=== PATIENT | male | born 1955 | race Caucasian/White ===

== ENCOUNTER 2016-09-05 08:07 | Emergency (ER) | payer BC ==
[~2016-09-05] VITALS: Ht 177.8 cm; Wt 79.4 kg
[2016-09-05] MEDS ORDERED: IV NORMAL SALINE 1000ML BAG 1,000 ML IV SCH (08:35)
[2016-09-05] MEDS ORDERED: FENTANYL PF 100 MCG/2 ML VIAL. IV ONE (08:45)
[2016-09-05] MEDS ORDERED: ONDANSETRON PF 4 MG/2 ML VIAL. IV ONE (08:45)
--- NOTE | 2016-09-05 09:52 | PHYS DOC ---
Past Medical History Past Medical History: CAD, GERD, High Cholesterol, [place], Other Additional Past Medical Histor: MITRAL VALVE RUPTURE Past Surgical History: Coronary Bypass Surgery, Other Additional Past Surgical Histo: HEART CATH, MITRAL VALVE REPAIR. Alcohol Use: Occasionally Drug Use: None Adult General Chief Complaint Chief Complaint: ABDOMINAL PAIN HPI HPI 60-year-old male presenting to the emergency department today after having suprapubic abdominal pain. He describes it as a spasm/cramp sensation. It is nonradiating associated with hematuria. He reports passing one clot in his urine. It is moderate and after passing his clots he reports improving symptoms. He denies nausea vomiting fevers chills. Review of systems negative for chest pain shortness of breath nausea or vomiting. All other review of systems is negative unless otherwise noted in history of present illness. Review of Systems Review of Systems SEE ABOVE. Current Medications Current Medications Current Medications Medications (Trade) Dose Ordered Sig/Marcia Start Time Stop Time Status Last Admin Dose Admin Fentanyl Citrate (Fentanyl 2ml Vial) 25 mcg 1X ONCE 09/05/16 08:45 09/05/16 08:45 DC Ondansetron HCl (Zofran) 4 mg 1X ONCE 09/05/16 08:45 09/05/16 08:45 DC Sodium Chloride (Iv Sodium Chloride 0.9% 1000ml Bag) 1,000 ml @ 1,000 mls/hr Q1H 09/05/16 08:35 09/05/16 08:42 DC Allergies Allergies Allergies Coded Allergies Type Severity Reaction Last Updated Verified No Known Drug Allergies 09/05/16 No Physical Exam Physical Exam Constitutional: Well developed, well nourished, no acute distress, non-toxic appearance. [] HENT: Normocephalic, atraumatic, bilateral external ears normal, oropharynx moist, no oral exudates, nose normal. Eyes: PERRLA, EOMI, conjunctiva normal, no discharge. [] Neck: Normal range of motion, no tenderness, supple, no stridor. Cardiovascular:Heart rate regular rhythm, no murmur [] Lungs & Thorax: Bilateral breath sounds clear to auscultation Abdomen: Bowel sounds normal, soft, no tenderness, no masses, no pulsatile masses. Skin: Warm, dry, no erythema, no rash. [] Back: No tenderness, no CVA tenderness. Extremities: No tenderness, no cyanosis, no clubbing, ROM intact, no edema. Neurologic: Alert and oriented X 3, normal motor function, normal sensory function, no focal deficits noted. [] Psychologic: Affect normal, judgement normal, mood normal. Current Patient Data Vital Signs Vital Signs Date Time Temp Pulse Resp B/P Pulse Ox O2 Delivery O2 Flow Rate FiO2 09/05/16 08:10 98.1 58 20 141/79 98 Room Air 98.1 Lab Values Laboratory Tests Test 09/05/16 08:45 Urine Collection Type Unknown Urine Color Red Urine Clarity Turbid Urine pH 5.5 Urine Specific [place] 1.025 Urine Protein >=300mg/dL (NEG-TRACE) Urine Glucose (UA) 100mg/dL (NEG) Urine Ketones (Stick) 15mg/dL (NEG) Urine Blood Large (NEG) Urine Nitrite Positive (NEG) Urine Bilirubin Moderate (NEG) Urine Urobilinogen Dipstick 1.0mg/dL (0.2 mg/dL) Urine Leukocyte Esterase Large (NEG) Urine RBC Tntc/HPF (0-2) Urine WBC 11-20/HPF (0-4) Urine Squamous Epithelial Cells Few/LPF Urine Bacteria Few/HPF (0-FEW) EKG EKG [] Radiology/Procedures Radiology/Procedures [] Course & Med Decision Making Course & Med Decision Making Pertinent Labs and Imaging studies reviewed. (See chart for details) [] 60-year-old gentleman presenting to the emergency department today with suprapubic abdominal pain. Upon arrival to the emergency department he stated his abdominal pain was improving significantly after passing a large blood clot in his urine. Now he just reports spasms. On examination the patient was afebrile with a normal heart rate. Otherwise unremarkable. Physical exam showed a nontender abdomen. Urinalysis was sent which showed evidence of urinary tract infection. Antibiotics prescribed. I sat down as discussed the possibility of Simpson catheter placement with the patient given his hematuria with clots. I recommended the placement of Simpson catheter, he declined. He was concerned about his ability to work and stated he would come back if he was unable to urinate or if his abdominal pain returned. This was placed successfully and the patient was subsequently discharged home to follow up with our urology team for further evaluation workup and care in 4-5. Dragon Disclaimer Dragon Disclaimer This electronic medical record was generated, in whole or in part, using a voice recognition dictation system. Departure Departure Impression: Primary Impression: Hematuria Additional Impression: Bladder spasm Disposition: 01 HOME, SELF-CARE Condition: STABLE Referrals: KIMBERLY HENNESSY (PCP) ALYSIA MARTINES DO Patient Instructions: Hematuria, Adult Additional Instructions: Thank you for allowing us to participate in your care today. Followup with urology in 5-7 days. If you do not have a primary care provider you can ask for a list of our primary care providers. Return to the emergency department you have any new or concerning findings. This should be evaluated by the primary care physician and any necessary consulting services for continued management within a few days after discharge. Return to emergency room if you have any new or concerning symptoms including but not limited to fever, chills, nausea, vomiting, intractable pain, any new rashes, chest pain, shortness of air, uncontrolled bleeding, difficulty breathing, and/or vision loss. You may have been prescribed medication that can change in your level of thinking and ability to operate machinery. These medications include hydrocodone and Ativan. Also, Benadryl has been known to do this as well. Be sure to check with your pharmacist and ask if the medications you've prescribed can affect your level of consciousness. I recommend not operating heavy machinery or driving while on medication such as these. Scripts Sulfamethoxazole/Trimethoprim (Bactrim Ds Tablet)1 Each Tablet1 Tab PO BID #20 TAB Prov:SHAHRIAR TOSCANO MD 09/05/16 Problem Qualifiers SHAHRIAR TOSCANO MD Sep 05, 2016 09:51
[2016-09-05 09:54] LABS: BILIRUBIN,URINE MODERATE (NEG); GLUCOSE,URINE 100 mg/dL (NEG); NITRITE,URINE POSITIVE (NEG); PH,URINE 5.5; PROTEIN,URINE >=300 mg/dL (NEG-TRACE)
[2016-09-05 10:06] LABS: BACTERIA,URINE FEW /HPF (0-FEW); RBC,URINE TNTC /HPF (0-2); SQUAMOUS EPITHELIAL CELL,UR FEW /LPF
[2016-09-05] MEDS ORDERED: SULF1TAB24 PO (10:39)
[2016-09-05 11:30] VITALS: BP 119/66
== END 2016-09-05 11:20 | disposition home or self-care (01) ==
LOC: ER 08:07
DX: R31.9 Hematuria, unspecified (principal); N32.89 Other specified disorders of bladder; I25.10 Atherosclerotic heart disease of native coronary artery without angina pectoris; K21.9 Gastro-esophageal reflux disease without esophagitis; E78.00 Pure hypercholesterolemia, unspecified; I25.2 Old myocardial infarction; I05.9 Rheumatic mitral valve disease, unspecified; Z95.1 Presence of aortocoronary bypass graft
CPT/HCPCS: 81001; 87086; 99284

== ENCOUNTER 2018-09-21 18:17 | Emergency (ER) | payer BC ==
[~2018-09-21] VITALS: Ht 180.3 cm; Wt 86.2 kg
[~2018-09-21 18:17] MED LIST: SULF1TAB24 PO
[2018-09-21] MEDS ORDERED: NITROGLYCERIN SUBLINGUAL 0.4 MG BOTTLE OF 25. SL STA (18:38)
[2018-09-21] MEDS ORDERED: GLUCAGON,HUMAN RECOMBINANT 1 MG/ML VIAL. IV ONE (18:45)
--- NOTE | 2018-09-21 18:54 | PHYS DOC ---
Past Medical History Past Medical History: CAD, GERD, High Cholesterol, Hypertension, [place], Other Additional Past Medical Histor: MITRAL VALVE RUPTURE Past Surgical History: Coronary Bypass Surgery, Other Additional Past Surgical Histo: HEART CATH, MITRAL VALVE REPAIR. Alcohol Use: Occasionally Additional Information: DAILY BEER Drug Use: None Adult General Chief Complaint Chief Complaint: FOREIGN BODY HPI HPI Patient is a 62-year-old male who presents with complaint of food bolus in esophagus. Patient states that he had been eating a piece of steak and when he swallowed it felt like it got stuck and ever since he has not been able to swallow anything. Patient states that he has vomited a couple of times when he is tried to swallow any fluids. He does report pain in his midsternal area that he rates as mild at this time but states that it was quite severe initially. Patient states that he does have a history of reflux disease but denies any history of esophageal foreign body and has not had a scope in the past. Review of Systems Review of Systems Constitutional: Denies fever or chills [] Respiratory: Denies cough or shortness of breath [] Cardiovascular: No additional information not addressed in HPI [] GI: Denies abdominal pain. Reports vomiting. [] Neurologic: Denies headache, focal weakness or sensory changes [] All other systems were reviewed and found to be within normal limits, except as documented in this note. Current Medications Current Medications Current Medications Medications (Trade) Dose Ordered Sig/[facility] Start Time Stop Time Status Last Admin Dose Admin Glucagon (Glucagen) 1 mg 1X ONCE 09/21/18 18:45 09/21/18 18:46 DC 09/21/18 19:10 1 MG Nitroglycerin (Nitrostat) 0.4 mg 1X STAT 09/21/18 18:38 09/21/18 18:41 DC 09/21/18 19:03 0.4 MG Allergies Allergies Allergies Coded Allergies Type Severity Reaction Last Updated Verified No Known Drug Allergies 09/05/16 No Physical Exam Physical Exam Constitutional: Well developed, well nourished, no acute distress, non-toxic appearance. [] HENT: Normocephalic, atraumatic, bilateral external ears normal, oropharynx moist, no oral exudates, nose normal. [] Eyes: PERRLA, EOMI, conjunctiva normal, no discharge. [] Neck: Normal range of motion, no tenderness, supple, no stridor. [] Cardiovascular: Regular rate and rhythm[] Lungs & Thorax: Bilateral breath sounds clear to auscultation [] Abdomen: Bowel sounds normal, soft, no tenderness. [] Skin: Warm, dry, no erythema, no rash. [] Extremities: No tenderness, no cyanosis, no clubbing, ROM intact, no edema. [] Neurologic: Alert and oriented X 3, no focal deficits noted. [] Current Patient Data Vital Signs Vital Signs Date Time Temp Pulse Resp B/P (MAP) Pulse Ox O2 Delivery O2 Flow Rate FiO2 09/21/18 19:03 62 178/81 09/21/18 18:32 96.7 22 99 Room Air 96.7 Lab Values Laboratory Tests Test 09/21/18 18:45 White Blood Count 8.3 x10^3/uL (4.0-11.0) Red Blood Count 4.56 x10^6/uL (4.30-5.70) Hemoglobin 14.6 g/dL (13.0-17.5) Hematocrit 42.2 % (39.0-53.0) Mean Corpuscular Volume 92 fL (79-100) Mean Corpuscular Hemoglobin 32 pg (25-35) Mean Corpuscular Hemoglobin Concent 35 g/dL (31-37) Red Cell Distribution Width 14.1 % (11.5-14.5) Platelet Count 199 x10^3/uL (140-400) Neutrophils (%) (Auto) 56 % (31-73) Lymphocytes (%) (Auto) 31 % (24-48) Monocytes (%) (Auto) 10 % (0-9) H Eosinophils (%) (Auto) 2 % (0-3) Basophils (%) (Auto) 1 % (0-3) Neutrophils # (Auto) 4.6 x10^3uL (1.8-7.7) Lymphocytes # (Auto) 2.5 x10^3/uL (1.0-4.8) Monocytes # (Auto) 0.9 x10^3/uL (0.0-1.1) Eosinophils # (Auto) 0.2 x10^3/uL (0.0-0.7) Basophils # (Auto) 0.1 x10^3/uL (0.0-0.2) Sodium Level 142 mmol/L (136-145) Potassium Level 3.7 mmol/L (3.5-5.1) Chloride Level 104 mmol/L (98-107) Carbon Dioxide Level 24 mmol/L (21-32) Anion Gap 14 (6-14) Blood Urea Nitrogen 20 mg/dL (8-26) Creatinine 1.1 mg/dL (0.7-1.3) Estimated GFR (Cockcroft-Gault) 68.1 BUN/Creatinine Ratio 18 (6-20) Glucose Level 102 mg/dL (70-99) H Calcium Level 9.3 mg/dL (8.5-10.1) Total Bilirubin 2.1 mg/dL (0.2-1.0) H Aspartate Amino Transferase (AST) 21 U/L (15-37) Alanine Aminotransferase (ALT) 39 U/L (16-63) Alkaline Phosphatase 80 U/L (46-116) Total Protein 7.7 g/dL (6.4-8.2) Albumin 4.4 g/dL (3.4-5.0) Albumin/Globulin Ratio 1.3 (1.0-1.7) Laboratory Tests 09/21/18 18:45 Laboratory Tests 09/21/18 18:45 EKG EKG [] Radiology/Procedures Radiology/Procedures [] Course & Med Decision Making Course & Med Decision Making Pertinent Labs and Imaging studies reviewed. (See chart for details) Patient moved to room upon arrival was evaluated by your medical staff after which an IV was established and blood work was drawn. Patient initially was given some Coca-Cola to see if food bolus had passed but patient had vomiting almost immediately after drinking. At this point, patient was given an IV dose of glucagon along with sublingual nitroglycerin and about 5 minutes later, patient stated that he had an episode where he coughed and then swallowed and felt like it had passed. At this point, patient was able to swallow liquids without difficulty and pain is gone. Patient states that he is ready to go home. Dragon Disclaimer Dragon Disclaimer This electronic medical record was generated, in whole or in part, using a voice recognition dictation system. Departure Departure Impression: Primary Impression: Esophageal foreign body Disposition: HOME, SELF-CARE Condition: STABLE Referrals: KIMBERLY HENNESSY (PCP) Patient Instructions: Swallowed Foreign Body, Adult Problem Qualifiers Primary Impression: Esophageal foreign body Encounter type: initial encounter Qualified Codes: T18.108A - Unspecified foreign body in esophagus causing other injury, initial encounter SOPHIA PEDROZA Jr. DO Sep 21, 2018 18:54
[2018-09-21 19:02] LABS: BASO # 0.1 x10^3/uL (0.0-0.2); BASO % 1 % (0-3); EOS # 0.2 x10^3/uL (0.0-0.7); EOS % 2 % (0-3); HEMATOCRIT 42.2 % (39.0-53.0); HEMOGLOBIN 14.6 g/dL (13.0-17.5); LYMPH # 2.5 x10^3/uL (1.0-4.8); LYMPH % 31 % (24-48); MEAN CORPUSCULAR HEMOGLOBIN 32 pg (25-35); MEAN CORPUSCULAR HGB CONC 35 g/dL (31-37); MEAN CORPUSCULAR VOLUME 92 fL (79-100); MONO # 0.9 x10^3/uL (0.0-1.1); MONO % 10 % (0-9); NEUT # 4.6 x10^3uL (1.8-7.7); NEUT % 56 % (31-73); PLATELET COUNT 199 x10^3/uL (140-400); RED BLOOD COUNT 4.56 x10^6/uL (4.30-5.70); RED CELL DISTRIBUTION WIDTH 14.1 % (11.5-14.5); WHITE BLOOD COUNT 8.3 x10^3/uL (4.0-11.0)
[2018-09-21 19:11] LABS: CALCIUM 9.3 mg/dL (8.5-10.1); CREATININE 1.1 mg/dL (0.7-1.3); GFR 68.1; POTASSIUM 3.7 mmol/L (3.5-5.1)
[2018-09-21 19:17] LABS: ALBUMIN 4.4 g/dL (3.4-5.0); ALBUMIN/GLOBULIN RATIO 1.3 (1.0-1.7); TOTAL BILIRUBIN 2.1 mg/dL (0.2-1.0); TOTAL PROTEIN 7.7 g/dL (6.4-8.2)
[2018-09-21 20:26] VITALS: BP 113/64
== END 2018-09-21 20:30 | disposition home or self-care (01) ==
LOC: ER 18:17
DX: T18.128A Food in esophagus causing other injury, initial encounter (principal); R11.10 Vomiting, unspecified; K21.9 Gastro-esophageal reflux disease without esophagitis; E78.00 Pure hypercholesterolemia, unspecified; I10 Essential (primary) hypertension; I25.2 Old myocardial infarction; I25.10 Atherosclerotic heart disease of native coronary artery without angina pectoris; Z95.1 Presence of aortocoronary bypass graft; X58.XXXA Exposure to other specified factors, initial encounter; Y93.89 Activity, other specified; Y92.89 Other specified places as the place of occurrence of the external cause; Y99.8 Other external cause status
CPT/HCPCS: 36415; 80053; 85025; 96374; 99283; J1610

== ENCOUNTER 2019-02-22 15:46 | Emergency (ER) | payer BC ==
[~2019-02-22] VITALS: Ht 177.8 cm; Wt 83.9 kg
[2019-02-22 16:08] VITALS: BP 145/88
[2019-02-22] MEDS ORDERED: HYDR-2761 PO (18:47)
--- NOTE | 2019-02-22 18:47 | PHYS DOC ---
Past Medical History Past Medical History: CAD, GERD, High Cholesterol, Hypertension, [place], Other Additional Past Medical Histor: MITRAL VALVE RUPTURE Past Surgical History: Coronary Bypass Surgery, Other Additional Past Surgical Histo: HEART CATH, MITRAL VALVE REPAIR. Alcohol Use: Occasionally Drug Use: None Adult General Chief Complaint Chief Complaint: KNEE INJURY HPI HPI Patient is a 63 year old male who presents to the emergency department with complaints of right knee pain and swelling for the last 2 weeks. Patient states he was sitting [place] style with his legs crossed when he twisted to reach over and grab something and felt something pop in his knee. He denies any trauma, fall, or direct injury to the knee. He was seen by his primary care doctor who told patient that he may have a torn meniscus. Currently, patient rates his pain a 6 out of 10 on the pain scale movement, the pain as a 3 or 4 out of 10 with rest. ROS Patient denies any fever, numbness, tingling, or weakness of the right lower extremity. He denies any bruising to his right knee. All other ROS is neg unless otherwise noted in HPI. Review of Systems Review of Systems See Above Allergies Allergies Allergies Coded Allergies Type Severity Reaction Last Updated Verified No Known Drug Allergies 09/05/16 No Physical Exam Physical Exam See Above Constitutional: Well developed, well nourished, no acute distress, non-toxic yumiko earance. [] HENT: Normocephalic, atraumatic, bilateral external ears normal, oropharynx moist, no oral exudates, nose normal. [] Eyes: PERRLA, EOMI, conjunctiva normal, no discharge. [] Neck: Normal range of motion, no stridor. [] Cardiovascular:Heart rate regular rhythm Lungs & Thorax: Respirations even and unlabored, no retractions, no respiratory distress Skin: Warm, dry, no erythema, no rash, no bruising. [] Extremities: R knee: anterior medial TTP, no crepitus, no obvious deformity, no cyanosis, no clubbing, ROM intact, 1+ edema, anterior and posterior drawer testing is negative, Pt reports increased pain with stress testing. Neurologic: Alert and oriented X 3, normal motor function, normal sensory function, no focal deficits noted. [] Psychologic: Affect normal, judgement normal, mood normal. [] Current Patient Data Vital Signs Vital Signs Date Time Temp Pulse Resp B/P (MAP) Pulse Ox O2 Delivery O2 Flow Rate FiO2 02/22/19 16:08 98.1 65 18 145/88 (107) 98 Room Air 98.1 EKG EKG [] Radiology/Procedures Radiology/Procedures R knee x-ray negative for any acute fracture or findings read by Dr. [place] [] Course & Med Decision Making Course & Med Decision Making Pertinent Labs and Imaging studies reviewed. (See chart for details) dx: R knee injury Advised patient that there was no obvious deformity or fracture found on his x- ray today. Encouraged patient to follow up with Dr. Rutherford for suspected meniscal injury. Prescription written for hydrocodone 25 milligram tablets patient may take half to 1 tablet at bedtime as needed for pain. Recommend ice, and elevation of the affected extremity. Wear the knee support/ brace that patient has at home as discussed Patient verbalized an understanding of home care, medications, follow-up, and return to ED instructions and was in agreement with the plan of care. [] Dragon Disclaimer Dragon Disclaimer This electronic medical record was generated, in whole or in part, using a voice recognition dictation system. Departure Departure Impression: Primary Impression: Right knee pain Additional Impression: Right knee injury Disposition: HOME, SELF-CARE Condition: STABLE Referrals: UNKNOWN PCP NAME (PCP) WILIAM RUTHERFORD MD Patient Instructions: Knee Pain, [id number] Additional Instructions: Fill the prescription and use as directed. Recommend application of ice, wearing your knee wrap at home, and elevation. Follow up with Dr. Rutherford if symptoms persist, return to the ER if symptoms worsen. Scripts Hydrocodone Bit/Acetaminophen (HYDROCODONE-APAP 5-325 ) 1 Tab Tablet 0.5-1 TAB PO PRN Q6HRS PRN for PAIN for 1 Day, #4 TAB 0 Refills Prov: [employer] 02/22/19 Problem Qualifiers Primary Impression: Right knee pain Chronicity: acute Qualified Codes: M25.561 - Pain in right knee Additional Impression: Right knee injury Encounter type: initial encounter Qualified Codes: S89.91XA - Unspecified injury of right lower leg, initial encounter [employer] Feb 22, 2019 18:47
--- NOTE | 2019-02-23 04:21 | RAD ---
Three-view right knee dated 02/22/2019. No comparison available. Clinical indication: Knee pain for 2 weeks. FINDINGS: 3 views of the right knee show normal bony alignment. No displaced fracture. Mild tricompartmental hypertrophic change. Small loose bodies at the posterior joint space. No definite joint effusion. Osseous fragmentation at the anterior tibial tubercle, likely related to old [place]-Schlatter disease. IMPRESSION: 1. No acute radiographic abnormality. 2. Mild tricompartmental DJD with suspected small loose bodies at the posterior joint space. Electronically signed by: Chun Love MD (02/23/2019 4:18 AM) [id number]
== END 2019-02-22 18:58 | disposition home or self-care (01) ==
LOC: ER 15:46
DX: S89.91XA Unspecified injury of right lower leg, initial encounter (principal); K21.9 Gastro-esophageal reflux disease without esophagitis; E78.00 Pure hypercholesterolemia, unspecified; I10 Essential (primary) hypertension; I25.10 Atherosclerotic heart disease of native coronary artery without angina pectoris; I25.2 Old myocardial infarction; Z95.1 Presence of aortocoronary bypass graft; X50.9XXA Other and unspecified overexertion or strenuous movements or postures, initial encounter; Y93.89 Activity, other specified; Y92.89 Other specified places as the place of occurrence of the external cause; Y99.8 Other external cause status
CPT/HCPCS: 73562; 99284

== ENCOUNTER → 2020-01-31 | Outpatient (CLI) | payer BC ==
[~2020-01-31] MED LIST changes: +HYDR-2761 PO
--- NOTE | 2020-01-31 15:44 | KCIC ---
EXAM: Right shoulder, 3 views. HISTORY: Pain. COMPARISON: None. FINDINGS: 3 views of the right shoulder obtained. There is no fracture, dislocation or subluxation. There are median sternotomy changes. IMPRESSION: No acute osseous finding. Electronically signed by: Haydee Navarrete MD (01/31/2020 3:41 PM) [id number]
== END | disposition home or self-care (01) ==
LOC: KCIC 14:56
PROVIDERS: ATTEND Physician Assistant
DX: M25.511 Pain in right shoulder (principal)
CPT/HCPCS: 73030